=== PATIENT | male | born 1980 | race Caucasian/White ===

== ENCOUNTER 2025-06-10 09:32 | Outpatient (CLI) | payer OTHER, SELFPAY ==
--- OUTSIDE RECORDS SUMMARY | 2025-06-10 09:48 | XMS_ITS | Encounter Summary ---
Author Organization [facility] Address [address] [place] [address] Care Team Providers Care Auto Inspection Specialist Name Role Phone Unavailable Primary Care Provider Unavailabl e Encounter Details Date Type Department Care Team (Late st Contact Info) Description 06/23/2021 Lab Requisition [facility] [address] [place] [address] Kristy Carter, PAPER WINDER-LIFE CLAIMS EXAMINER [address] [id number] Social History Tobacco Use Types Packs/Day Years Used Date Smoking Tobacco: Never Assessed Sex and Gender Information Value Date Recorded Sex Assigned at Not on file Legal Sex Male 3:48 PM CDT Gender Identity Not on file Sexual Orientation Not on file documented as of this encounter Plan of Treatment Not on file documented as of this encounter Procedures Procedure Name Priority Date/Time Associated Diagnosis Comments CBC W AUTO DIFFERENTIAL STAT 06/23/2021 11:58 AM CDT COMPREHENSIVE METABOLIC PANEL STAT 06/23/2021 11:58 AM CDT MAGNESIUM BLOOD STAT 06/23/2021 11:58 AM CDT documented in this encounter Results * COMPREHENSIVE METABOLIC PANEL (06/23/2021 11:58 AM CDT) Glucose 84 70 - 105 mg/dL 06/23/2021 4:13 PM CDT [facility] Sodium 141 136 - 145 mmol/L 06/23/2021 4:13 PM CDT [facility] Potassium 4.7 3.5 - 5.1 mmol/L 06/23/2021 4:13 PM CDT [facility] Chloride 106 98 - 107 mmol/L 06/23/2021 4:13 PM CDT [facility] CO2 26 23 - 31 mmol/L 06/23/2021 4:13 PM CDT [facility] Calcium 9.6 8.4 - 10.4 mg/dL 06/23/2021 4:13 PM CDT [facility] Anion Gap 9 8 - 18 mmol/L 06/23/2021 4:13 PM CDT [facility] BUN 16 8.9 - 20.6 mg/dL 06/23/2021 4:13 PM CDT [facility] Creatinine 1.01 0.72 - 1.25 mg/dL 06/23/2021 4:13 PM CDT [facility] Alkaline Phosphatase 65 40 - 150 U/L 06/23/2021 4:13 PM CDT [facility] ALT 35 0 - 61 U/L 06/23/2021 4:13 PM CDT [facility] AST 25 5 - 34 U/L 06/23/2021 4:13 PM CDT [facility] Protein Total 7.4 6.4 - 8.3 gm/dL 06/23/2021 4:13 PM CDT [facility] Albumin 4.5 3.5 - 5.2 gm/dL 06/23/2021 4:13 PM CDT [facility] Bilirubin Total 1.0 0.2 - 1.2 mg/dL 06/23/2021 4:13 PM CDT [facility] eGFR by MDRD >60 >60 mL/min/1.7 3m2 06/23/2021 4:13 PM CDT [facility] eGFR by MDRD >60 >60 mL/min/1.7 3m2 06/23/2021 4:13 PM CDT [facility] Blood BLOOD SPECIMEN / Unknown Venipuncture / Unknown 06/23/2021 11:58 AM CDT 06/23/2021 3:51 PM CDT us Kristy Carter PAPER WINDER-LIFE CLAIMS EXAMINER LAB - CHEMISTRY ORDERABLE S Final Result [facility] [address] [place] [address] * CBC WITH DIFFERENTIAL (06/23/2021 11:58 AM CDT) [facility] Signature WBC 5.1 4.4 - 10.7 x10E9/L 06/23/2021 3:57 PM CDT [facility] WBC Corrected 06/23/2021 3:57 PM CDT [facility] RBC 5.05 3.80 - 5.40 x10E12/L 06/23/2021 3:57 PM CDT [facility] Hemoglobin 14.5 12.0 - 17.6 gm/dL 06/23/2021 3:57 PM CDT [facility] Hematocrit 46.2 35.2 - 51.7 % 06/23/2021 3:57 PM CDT [facility] MCV 91.5 80.7 - 98.3 fl 06/23/2021 3:57 PM CDT [facility] MCH 28.7 26.7 - 34.0 pg 06/23/2021 3:57 PM CDT [facility] MCHC 31.4 30.8 - 35.9 gm/dL 06/23/2021 3:57 PM CDT [facility] Platelet Count 223 153 - 416 x10E9/L 06/23/2021 3:57 PM CDT [facility] RDW-CV 12.5 12.1 - 14.9 % 06/23/2021 3:57 PM CDT [facility] MPV 10.3 9.4 - 12.9 fl 06/23/2021 3:57 PM CDT [facility] Neutrophils % 49.5 44.0 - 73.0 % 06/23/2021 3:57 PM CDT [facility] Lymphocytes % 38.8 20.0 - 43.0 % 06/23/2021 3:57 PM CDT [facility] Monocytes % 7.8 5.0 - 13.0 % 06/23/2021 3:57 PM CDT [facility] Eosinophils % 2.9 0.0 - 6.0 % 06/23/2021 3:57 PM CDT [facility] Basophils % 0.6 0.0 - 2.0 % 06/23/2021 3:57 PM CDT [facility] Immature Granulocytes 0.4 0 - 1 % 06/23/2021 3:57 PM CDT [facility] Neutrophil Absolute 2.52 2.01 - 7.14 x10E9/L 06/23/2021 3:57 PM CDT [facility] Lymphocytes Absolute 1.98 1.07 - 3.94 x10E9/L 06/23/2021 3:57 PM CDT [facility] Monocytes Absolute 0.40 0.26 - 1.07 x10E9/L 06/23/2021 3:57 PM CDT [facility] Eosinophils Absolute 0.15 0 - 0.47 x10E9/L 06/23/2021 3:57 PM CDT [facility] Basophils Absolute 0.03 0 - 0.08 x10E9/L 06/23/2021 3:57 PM CDT [facility] Immature Granulocytes Absolute 0.02 0.00 - 0.06 x10E9/L 06/23/2021 3:57 PM CDT [facility] nRBC Auto 0 /100 WBC 06/23/2021 3:57 PM CDT [facility] Blood BLOOD SPECIMEN / Unknown Venipuncture / Unknown 06/23/2021 11:58 AM CDT 06/23/2021 3:51 PM CDT Kristy Carter APRN-LIFE CLAIMS EXAMINER LAB - HEMATOLOGY ORDERABL ES Final Result Performing Organization Address City/[facility] Co de Phone Number [facility] [address] [place] [address] * MAGNESIUM BLOOD (06/23/2021 11:58 AM CDT) [facility] Magnesium 1.8 1.6 - 2.6 mg/dL 06/23/2021 4:13 PM CDT [facility] Blood BLOOD SPECIMEN / Unknown Venipuncture / Unknown 06/23/2021 11:58 AM CDT 06/23/2021 3:51 PM CDT Kristy Carter APRN-LIFE CLAIMS EXAMINER LAB - CHEMISTRY ORDERABLE S Final Result Performing Organization Address City/[facility]/ZIP Co de Phone Number [facility] [address] [place] [address] documented in this encounter Visit Diagnoses Not on filedocumented in this encounter
--- OUTSIDE RECORDS SUMMARY | 2025-06-10 09:48 | XMS_ITS | Clinical Summary ---
Author Organization [facility] Address [address] [place] [address] Care Team Providers Care Abalone Fisherman Name Role Phone Unavailable Primary Care Provider Unavailabl e Source Comments [facility],non-owned Affiliates and Associated Physician Practices is amultiple site organization consisting of ambulatory clinics and hospital sitesin [place], [place], [place] and [place]. This disclosure is being madepursuant to the Care Everywhere program and may not contain all information available regarding this patient. Last updated 18.[facility] Social History Tobacco Use Types Packs/Day Years Used Date Smoking Tobacco: Never Assessed Sex and Gender Information Value Date Recorded Sex Assigned at Not on file Legal Sex Male 3:48 PM CDT Gender Identity Not on file Sexual Orientation Not on file Plan of Treatment Health Maintenance Due Date Last Done Comments COLOGUARD (AGES 45-75) - COL ON CA SCREENING 1980 COLON MONITORING 1980 COLONOSCOPY - COLON CA SCREENING 1980 CT COLONOGRAPHY - COLON CA SCREENING 1980 Colorectal Cancer Screening 1980 FIT - COLON CA SCREENING 1980 FLEX SIG - COLON CA SCREENING 1980 LIPID TESTING 1980 HIV SCREENING 02/22/1995 HEPATITIS C SCREENING 02/18/1998 DTAP/TDAP/TD VACCINES (1 - Tdap) 02/22/1999 HEPATITIS B VACCINE (1 of 3 - 19+ 3-dose series) 02/22/1999 HPV VACCINE (1 - 3-dose SCDM series) 02/22/2007 COVID-19 VACCINE ( - 2023-2 5 season) 2024 DEPRESSION SCREENING 10/09/2024 INFLUENZA VACCINE (#1) 2025 ZOSTER VACCINE (1 of 2) 02/22/2030 HIB VACCINE Aged Out No longer eligi ble based on patient's age to complete this topic MENINGOCOCCAL (Group B) VACC INE SHARED DECISION-MAKING Aged Out No longer eligibl e based on patient's age to complete this topic MENINGOCOCCAL GROUPS A/C/Y/W VACCINE Aged Out No longer eligible b ased on patient's age to complete this topic PNEUMOCOCCAL VACCINE Aged Out No long er eligible based on patient's age to complete this topic
--- OUTSIDE RECORDS SUMMARY | 2025-06-10 09:48 | XMS_ITS | Clinical Summary ---
Author Organization [facility] Address [facility] [place] [id number] Care Team Providers Care Nursing Home Administrator Name Role Phone None, Provider MD Primary Care Provider Unavaila ble Allergies No known active allergies Medications azithromycin (ZITHROMAX) 250 MG tabletIndicatio ns:Bronchitis Take 2 tablets by mouth on day one then 1 daily for four days. 6 tablet 01/27/2025 Active Active Problems Problem Noted Date Diagnosed Date Dizziness 06/28/2021 Sinus bradycardia 06/28/2021 Social History Tobacco Use Types Packs/Day Years Used Date Smoking Tobacco: Unknown Tobacco Cessation:Counseling Given: Not Answered PHQ-2 Answer Date Recorded Patient Health Questionnaire-2 Score 0 01/27/2025 Sex and Gender Information Value Date Recorded Sex Assigned at Not on file Legal Sex Male 6:43 PM CDT Gender Identity Not on file Sexual Orientation Not on file Last Filed Vital Signs Vital Sign Reading Time Taken Comments Blood Pressure 120/88 01/27/2025 8:29 AM CDT Pulse 64 08/30/2024 8:43 AM PV INSTALLER TECH Temperature 36.5 C (97.7 F) 01/27/2025 8:29 AM CDT Respiratory Rate 20 01/27/2025 8:29 AM CDT Oxygen Saturation 99% 01/27/2025 8:29 AM CDT Inhaled Oxygen Concentration - - Weight 90.7 kg (200 lb) 01/27/2025 8:29 AM CDT Height 175.3 cm (5' 9) 01/27/2025 8:29 AM CDT Body Mass Index 29.53 01/27/2025 8:29 AM CDT Plan of Treatment Health Maintenance Due Date Last Done Comments Colorectal Cancer Screening Colonoscopy (10 Years) 1980 Annual Physical 02/22/1983 Hepatitis C 02/22/1998 DTaP, Tdap and Td Vaccines ( 1 - Tdap) 02/22/1999 Hepatitis B Vaccines (1 of 3 - 19+ 3-dose series) 02/22/1999 HPV Vaccines (1 - 3-dose SCD M series) 02/22/2007 COVID-19 Vaccine (3 2024-2 6 season) 2025 05/30/2021, 05/02/2021 PHQ-2 (Physician [place]) Completed 01/27/2025 Meningococcal B Vaccine Aged Out No l onger eligible based on patient's age to complete this topic Meningococcal Vaccine Aged Out No nafisa tabitha eligible based on patient's age to complete this topic Pneumococcal Vaccine: Pediatrics (0 to 5 Years) and At-Risk Patients (6 to 49 Years) Aged Out No longer eligible b ased on patient's age to complete this topic RSV Immunizations Under 20 Months Aged Out No longer eligible b ased on patient's age to complete this topic Insurance Care Teams Nursing Home Administrator Relationship Specialty Start Date End Date None, Provider, PCP - General UNKNOWN PHYSICIAN SPECIALTY 08/30/24
--- OUTSIDE RECORDS SUMMARY | 2025-06-10 09:48 | XMS_ITS | Clinical Summary ---
Author Organization [facility] [address] Address [address] [place] [address] Care Team Providers Care Toucher Up Name Role Phone Bryce Benson DO Primary Care Provider [phone] Allergies No known active allergies Medications No known medications Active Problems Problem Noted Date Diagnosed Date Sinus bradycardia 06/28/2021 Dizziness 06/28/2021 Surgical History Surgery Date Site/Laterality Comments EYE SURGERY age 6 Medical History Medical History Date Comments Bradycardia Vertigo Family History Medical History Relation Name Comments No Known Problems Brother 1 No Known Problems Brother 2 No Known Problems Brother 3 Colitis Father Epilepsy Mother Relation Name Status Comments Brother 1 Alive Brother 2 Alive Brother 3 Alive Father Alive Mother Alive Social History Tobacco Use Types Packs/Day Years Used Date Smoking Tobacco: Never Smokeless Tobacco: Current Chew Sex and Gender Information Value Date Recorded Sex Assigned at Not on file Legal Sex Male 1:58 PM CDT Gender Identity Not on file Sexual Orientation Not on file Obstetrics History Last Filed Vital Signs Vital Sign Reading Time Taken Comments Blood Pressure 104/64 08/09/2021 12:05 PM CDT Pulse 62 08/09/2021 12:05 PM CDT Temperature - - Respiratory Rate - - Oxygen Saturation 98% 08/09/2021 12: 05 PM CDT Inhaled Oxygen Concentration - - Weight 88.3 kg (194 lb 11.2 oz) 021 12:05 PM CDT Height 175.3 cm (5' 9) 08/09/2021 12:0 5 PM CDT Body Mass Index 28.75 08/09/2021 12:05 PM CDT Plan of Treatment Not on file Insurance [employer] Care Teams Toucher Up Relationship Specialty Start Date End Date Bryce Benson DO PCP - General Internal Medicine 06/23/21
[2025-06-10 15:38] LABS: Hematocrit 48.7 % (42.0-52.0); Hemoglobin 15.4 g/dL (14.0-18.0); Immature Granulocyte Percent A 0.2 % (0-0.5); Lymphocytes Absolute Auto 1.94 K/mm3 (0.9-3.2); Mean Corpuscular HGB Conc 31.6 g/dl (32-36); Mean Corpuscular Hemoglobin 29.2 pg (26-34); Mean Corpuscular Volume 92.4 fl (80-100); Nucleated Red Blood Cells Absolute Auto 0.000 K/mm3 (0.0-0.012); Nucleated Red Blood Cells Perc 0.0 % (0.0-0.2); Platelet Count Result 211 k/mm3 (150-375); Red Blood Count 5.27 M/mm3 (4.6-6.20); White Blood Count 5.3 K/mm3 (4.5-10.0)
[2025-06-10 16:09] LABS: Alanine Aminotransferase 39 U/L (6-50); Albumin Level 4.7 g/dL (3.5-5.1); Alkaline Phosphatase 65 U/L (38-126); Anion Gap 9 mmol/L (4-12); Aspartate Amino Transferase 42 U/L (17-59); Bilirubin,Total 0.8 mg/dL (0.2-1.3); Blood Urea Nitrogen 15 mg/dL (9-20); Calcium 9.8 mg/dL (8.4-10.2); Carbon Dioxide 28 mmol/L (22-30); Chloride 104 mmol/L (98-107); Cholesterol 182 mg/dL (0-200); Estimated Glomerular Filt Rate > 60; Glucose 83 mg/dL (65-110); HDL Direct 55 mg/dL; Potassium 4.6 mmol/L (3.4-5.0); Sodium 141 mmol/L (137-145); Total Protein 8.2 g/dL (6.3-8.2); Triglycerides 119 mg/dL (<150)
[2025-06-10 16:45] LABS: Prostate Specific Antigen 0.7 ng/mL (< OR = 4.0)
== END 2025-06-10 09:33 | disposition home or self-care (01) ==
LOC: ANHGOSHLAB 09:33
PROVIDERS: PCP Internal Medicine; Visit Provider Nurse Practitioner
DX: Z13.29 Encounter for screening for other suspected endocrine disorder (principal); Z13.220 Encounter for screening for lipoid disorders; Z12.5 Encounter for screening for malignant neoplasm of prostate
CPT/HCPCS: 36415; 80053; 80061; 84153; 85025; G0103